=== PATIENT | male | born 1975 | race Caucasian/White ===

== ENCOUNTER → 2020-04-19 | Outpatient (CLI) | payer OTHER ==
[~2020-04-19] MED LIST: FLUT1BLS INH
== END | disposition home or self-care (01) ==
LOC: STAR 14:28
PROVIDERS: ATTEND Otolaryngology
DX: Z20.828 Contact with and (suspected) exposure to other viral communicable diseases (principal)
CPT/HCPCS: 36415; 87635

== ENCOUNTER 2020-04-23 06:03 | Day surgery (SDC) | payer OTHER ==
[~2020-04-23] VITALS: Ht 175.3 cm; Wt 100.0 kg
[2020-04-23 06:47] VITALS: BP 110/73
[2020-04-23] MEDS ORDERED: FLUT1BLS INH (06:49)
[2020-04-23] MEDS ORDERED: LACTATED RINGERS 1,000 ML IV SCH (06:49)
[2020-04-23] MEDS ORDERED: CHLORHEXIDINE 15 ML UDC MM ONE (07:00)
[2020-04-23] MEDS ORDERED: PLEASE ENTER ALLERGIES MC SCH (07:00)
[2020-04-23] MEDS ORDERED: PROPOFOL 10 MG/ML, 20ML ONE (07:01)
[2020-04-23] MEDS ORDERED: FENTANYL PF 100 MCG/2ML ONE (07:01)
[2020-04-23] MEDS ORDERED: SUCCINYLCHOLINE 20 MG/ML, 10ML ONE (07:02)
[2020-04-23] MEDS ORDERED: LIDOCAINE-MPF 2% ,5ML ONE ×2 (07:02→09:38)
[2020-04-23] MEDS ORDERED: CHLORHEXIDINE 15 ML UDC ONE (07:15)
[2020-04-23] MEDS ORDERED: BACITRACIN OINT 500U/GM, 15 GM ONE (07:17)
[2020-04-23] MEDS ORDERED: FLUORESCEIN SODIUM 500 MG/5 ML ONE (07:17)
[2020-04-23] MEDS ORDERED: EPINEPHRINE TOPICAL SOLN 1 MG/ML, 30ML ONE (07:17)
[2020-04-23] MEDS ORDERED: BACITRACIN 50,000 UNIT ONE (07:17)
[2020-04-23] MEDS ORDERED: LIDOCAINE 1%-EPI 1:100K, 20ML ONE (07:17)
[2020-04-23] MEDS ORDERED: CEFAZOLIN 1,000 MG ONE ×2 (07:44)
[2020-04-23] MEDS ORDERED: DEXAMETHASONE 4 MG/ML, 1ML ONE ×3 (07:44)
[2020-04-23] MEDS ORDERED: FENTANYL PF 100 MCG/2ML IV PRN (08:00)
[2020-04-23] MEDS ORDERED: ONDANSETRON 2MG/ML, 2ML IVPush PRN (08:00)
[2020-04-23] MEDS ORDERED: PROMETHAZINE 25 MG/ML, 1ML IVPush PRN (08:00)
[2020-04-23] MEDS ORDERED: OXYcodone 5 MG/5 ML ORAL.SOL UDC PO PRN (08:00)
[2020-04-23] MEDS ORDERED: ONDANSETRON 2MG/ML, 2ML ONE (09:38)
[2020-04-23] MEDS ORDERED: OXYcodone 5 MG/5 ML ORAL.SOL UDC ONE (10:17)
== END 2020-04-23 12:05 | disposition home or self-care (01) ==
LOC: OUT 06:03
PROVIDERS: ATTEND Otolaryngology
DX: J34.2 Deviated nasal septum (principal); J32.0 Chronic maxillary sinusitis; J33.0 Polyp of nasal cavity; J32.4 Chronic pansinusitis; J34.89 Other specified disorders of nose and nasal sinuses; J45.909 Unspecified asthma, uncomplicated; R43.0 Anosmia; Z90.49 Acquired absence of other specified parts of digestive tract; Z91.048 Other nonmedicinal substance allergy status; Z98.890 Other specified postprocedural states; Z82.49 Family history of ischemic heart disease and other diseases of the circulatory system; Z82.3 Family history of stroke
CPT/HCPCS: 30520; 31259; 31267; 88304; J0330; J0690; J1100; J2405; J2704; J3010; J3490; J7120

== ENCOUNTER 2020-05-03 06:33 | Day surgery (SDC) | payer OTHER ==
[~2020-05-03] VITALS: Ht 175.3 cm; Wt 100.0 kg
[2020-05-03 06:53] VITALS: BP 113/80
[2020-05-03] MEDS ORDERED: CHLORHEXIDINE 15 ML UDC MM ONE (07:00)
[2020-05-03] MEDS ORDERED: CHLORHEXIDINE 15 ML UDC ONE (07:10)
[2020-05-03] MEDS ORDERED: PLEASE ENTER ALLERGIES MC SCH (07:30)
[2020-05-03] MEDS ORDERED: LIDOCAINE 4%, 4 ML SYR/CANN TP ONE (08:03)
[2020-05-03] MEDS ORDERED: OXYMETAZOLINE NASAL SPRAY 0.05%, 15ML NAS ONE (08:04)
== END 2020-05-03 09:00 | disposition home or self-care (01) ==
LOC: OUT 06:33
PROVIDERS: ATTEND Otolaryngology
DX: J32.4 Chronic pansinusitis (principal); J33.0 Polyp of nasal cavity; Z20.828 Contact with and (suspected) exposure to other viral communicable diseases
CPT/HCPCS: 87635